=== PATIENT | male | born 2005 | race Caucasian/White ===

== ENCOUNTER 2023-05-03 21:34 | Emergency (ER) | payer OTHER ==
[~2023-05-03 21:34] MED LIST: Iopamidol 370 76% 100 ML VIAL ONE
[2023-05-03] MEDS ORDERED: Ketorolac Tromethamine 30 MG/ML VIAL ONE (22:03)
[2023-05-03] MEDS ORDERED: Ondansetron PF 4 MG/2 ML Vial ONE (22:03)
[2023-05-03 22:07] LABS: #Eosinphils 0.1 thou/uL (0.0-0.7); #Monocytes 0.6 thou/uL (0.11-0.59); #Neutrophils 7.6 thou/uL (1.40-6.50); %Basophils 0.2 % (0.0-1.0); %Eosinophils 0.7 % (0.0-10.0); %Lymphocytes 7.6 % (28.0-48.0); %Neutrophils 84.3 % (31.0-61.0); Hematocrit 47.5 % (42.0-52.0); Mean Corpuscular HGB CONC 33.7 g/dL (32.0-36.0); Mean Corpuscular Hemoglobin 28.6 pg (25.0-35.0); Mean Platelet Volume 9.6 fL (7.4-10.4); Platelet Count 220 10x3/uL (130-400); RBC Distribution Width 12.3 % (11.5-14.5); Red Blood Cell (RBC) Count 5.59 mill/uL (4.00-5.20)
[2023-05-03 22:34] LABS: ALT (SGPT) 18 U/L (8-55); AST (SGOT) 20 U/L (5-34); Albumin 5.3 g/dL (3.5-5.0); Alkaline Phosphatase 69 U/L (50-130); Anion Gap 14 mmol/L (10-20); BUN (Urea Nitrogen) 11 mg/dL (8.9-20.6); Calc. Creatinine Clearance 0 mL/min (70-130); Calcium 9.7 mg/dL (7.8-10.44); Carbon Dioxide 29 mmol/L (22-29); Chloride 98 mmol/L (98-107); Estimated GFR 107; Globulin 2.5 g/dL (2.4-3.5); Glucose 109 mg/dL (70-105); Potassium 3.6 mmol/L (3.5-5.1); Protein, Total 7.8 g/dL (6.0-8.3); Sodium 137 mmol/L (136-145)
[2023-05-03 22:39] LABS: SARS-CoV-2 NAA Rapid Test Not Detected (NotDetected)
[2023-05-03 23:23] LABS: Bilirubin Negative (Negative); Blood, Urine Negative (Negative); Clarity Clear (Clear); Glucose, Urine (Dipstick) Normal (Negative); Ketone, Urine Negative (Negative); Leukocyte Negative Leu/uL (Negative); Nitrite Negative (Negative); Protein, Urine (Dipstick) 20 mg/dL (Neg-Trace); Specific Gravity, Urine 1.018 (1.002-1.036)
[2023-05-03 23:24] LABS: Bacteria/HPF None Seen HPF (None Seen); CAUTI Indications for Culture Pelvic or flank pain; RBC/HPF None Seen HPF (0-3); Squamous Epithelial 0-3 HPF (0-3); WBC/HPF 0-3 HPF (0-3)
[2023-05-03 23:29] LABS: Urine Culture Reflex No No
== END 2023-05-04 00:15 | disposition home or self-care (01) ==
LOC: ERS 21:34
DX: R10.31 Right lower quadrant pain (principal); R11.2 Nausea with vomiting, unspecified; Z20.822 Contact with and (suspected) exposure to COVID-19
CPT/HCPCS: 74177; 80053; 81001; 85025; 96374; 96375; J1885; J2405; Q9967

== ENCOUNTER 2025-02-21 03:29 | Emergency (ER) | payer BC, OTHER ==
[2025-02-21] MEDS ORDERED: Ketorolac Tromethamine 30 MG (1 mL) VIAL ONE (03:49)
== END 2025-02-21 04:55 | disposition home or self-care (01) ==
LOC: ERS 03:29
DX: S90.31XA Contusion of right foot, initial encounter (principal); W22.09XA Striking against other stationary object, initial encounter; Y93.89 Activity, other specified
CPT/HCPCS: 96372; 99283; J1885